=== PATIENT | female | born 1995 | race American Indian/Alaskan Native ===

== ENCOUNTER 2019-05-30 18:28 | Emergency (ER) | payer SELFPAY ==
[2019-05-30 18:35] VITALS: BP 125/90
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
[2019-05-30] MEDS ORDERED: TYLENOL PO ONE (18:36)
[2019-05-30] MEDS ORDERED: TYLENOL ONE (18:38)
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
[2019-05-30] MEDS ORDERED: IBUPROFEN PO ONE (20:30)
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
== END 2019-05-30 21:42 | disposition home or self-care (01) ==
LOC: ED 18:28
DX: S02.2XXA Fracture of nasal bones, initial encounter for closed fracture (principal); S00.83XA Contusion of other part of head, initial encounter; G44.319 Acute post-traumatic headache, not intractable; Z98.890 Other specified postprocedural states; Z79.899 Other long term (current) drug therapy; W22.01XA Walked into wall, initial encounter; Y93.89 Activity, other specified; Y92.89 Other specified places as the place of occurrence of the external cause; Y99.8 Other external cause status
CPT/HCPCS: 70450; 70486

== ENCOUNTER 2021-03-26 14:38 | Emergency (ER) | payer BC ==
[2021-03-26] MEDS ORDERED: IBUPROFEN 600 MG TAB PO ONE (16:29)
[2021-03-26] MEDS ORDERED: BUTALB/ACETAMINOPHEN/CAFFEINE TAB PO ONE (16:29)
--- NOTE | 2021-03-26 16:45 | Emergency Department Report ---
ED Headache HPI - General Chief Complaint: Headache Stated Complaint: MIGRAINS / ANXIETY Time Seen by Provider: 03/26/21 16:13 - History of Present Illness Initial Comments: Patient is a 25-year-old female presents emergency room with complaints of a frontal and bilateral temporal headache that began today while she was at work. she states that she had to leave work today secondary to the headache. She states that it increased her anxiety. She states that occasionally when the pain gets uncomfortable her vision gets blurry. She states that she has sensitivity to light and sounds. She denies any nausea, vomiting, numbness, weakness, speech disturbance, gait disturbance, fever, neck stiffness. She states typically ibuprofen works for her headaches. No past medical history. No allergies to medications. she states she has implanted control in the arm. Allergies/Adverse Reactions: Allergies No Known Allergies Allergy (Unverified 10/16/13 11:38) Home Medications: Ambulatory Orders Ciprofloxacin HCl [Cipro] 500 mg PO Q12H #14 tab 10/16/13 traMADoL [Ultram 50 MG tab] 50 mg PO Q6HR PRN #16 tablet 10/16/13 Erythromycin [Erythromycin Ophth Oint] 1 inch OS TID #1 tube 05/30/14 Acetaminophen/Codeine [Tylenol /Codeine # 3 tab] 1 tab PO Q6H PRN #12 tab 05/30/19 Amoxicillin/Potassium Clav [Augmentin 875-125 Tablet] 1 each PO Q12H #20 tablet 05/30/19 Ibuprofen [Motrin] 600 mg PO Q8H PRN #24 tablet 05/30/19 Ondansetron [Zofran Odt] 4 mg PO Q6HR PRN #12 tab.rapdis 05/30/19 Butalb/Acetaminophen/Caffeine [Fioricet 50-300-40 mg CAP] 1 cap PO Q8HR PRN #12 cap 03/26/21 Ibuprofen [Motrin 600 MG tab] 600 mg PO Q8H PRN #14 tablet 03/26/21 ED Review of Systems ROS: Stated complaint: MIGRAINS / ANXIETY Other details as noted in HPI Comment: All other systems reviewed and negative ED Past Medical Hx - Past Medical History Previous Medical History?: Yes Additional medical history: Anxiety - Surgical History Additional Surgical History: ovarin cyst lap 08-03 - Social History Smoking Status: Never Smoker - Medications Home Medications: Home Medications Medication Instructions Recorded Confirmed Last Taken Type Ciprofloxacin HCl [Cipro] 500 mg PO Q12H #14 tab 10/16/13 Unknown Rx traMADoL [Ultram 50 MG tab] 50 mg PO Q6HR PRN #16 tablet 10/16/13 Unknown Rx Erythromycin [Erythromycin Ophth 1 inch OS TID #1 tube 05/30/14 Unknown Rx Oint] Acetaminophen/Codeine [Tylenol 1 tab PO Q6H PRN #12 tab 05/30/19 Unknown Rx /Codeine # 3 tab] Amoxicillin/Potassium Clav 1 each PO Q12H #20 tablet 05/30/19 Unknown Rx [Augmentin 875-125 Tablet] Ibuprofen [Motrin] 600 mg PO Q8H PRN #24 tablet 05/30/19 Unknown Rx Ondansetron [Zofran Odt] 4 mg PO Q6HR PRN #12 tab.rapdis 05/30/19 Unknown Rx Butalb/Acetaminophen/Caffeine 1 cap PO Q8HR PRN #12 cap 03/26/21 Unknown Rx [Fioricet 50-300-40 mg CAP] Ibuprofen [Motrin 600 MG tab] 600 mg PO Q8H PRN #14 tablet 03/26/21 Unknown Rx ED Physical Exam - General Limitations: No Limitations General appearance: alert, in no apparent distress - Head Head exam: Present: atraumatic, normocephalic - Eye Eye exam: Present: normal appearance, PERRL, EOMI. Absent: conjunctival injection, periorbital swelling, periorbital tenderness Pupils: Present: normal accommodation - ENT ENT exam: Present: mucous membranes moist - Neck Neck exam: Present: normal inspection, full ROM. Absent: tenderness, meningismus - Respiratory Respiratory exam: Present: normal lung sounds bilaterally. Absent: respiratory distress, wheezes, rales, rhonchi, stridor, chest wall tenderness, accessory muscle use, decreased breath sounds, prolonged expiratory - Cardiovascular Cardiovascular Exam: Present: regular rate, normal rhythm, normal heart sounds. Absent: systolic murmur, diastolic murmur, rubs, gallop - Neurological Exam Neurological exam: Present: alert, oriented X3, CN II-XII intact, normal gait. Absent: motor sensory deficit - Psychiatric Psychiatric exam: Present: normal affect, normal mood - Skin Skin exam: Present: warm, dry, intact ED Course Vital Signs 03/26/21 03/26/21 03/26/21 14:55 16:38 16:39 Temperature 98.7 F Pulse Rate 76 Respiratory 20 16 16 Rate Blood Pressure 115/75 Blood Pressure [Right] O2 Sat by Pulse 100 Oximetry 03/26/21 17:31 Temperature Pulse Rate 81 Respiratory 19 Rate Blood Pressure Blood Pressure 124/75 [Right] O2 Sat by Pulse 99 Oximetry ED Medical Decision Making - Medical Decision Making Patient is a 25-year-old female presents emergency room with complaints of a frontal and bilateral temporal headache that began today while she was at work. she states that she had to leave work today secondary to the headache. She states that it increased her anxiety. She states that occasionally when the pain gets uncomfortable her vision gets blurry. She states that she has sensitivity to light and sounds. She denies any nausea, vomiting, numbness, weakness, speech disturbance, gait disturbance, fever, neck stiffness. She states typically ibuprofen works for her headaches. No past medical history. No allergies to medications. she states she has implanted control in the arm. Vitals are normal. No focal neuro deficits on exam, no meningeal signs, no signs of sinusitis. Patient given medications while in the emergency room with improvement of symptoms. Advised patient please take medication as prescribed. increase your fluid intake. follow up with a primary care doctor. return to the emergency room for any new or worsening symptoms. Critical care attestation.: If time is entered above; I have spent that time in minutes in the direct care of this critically ill patient, excluding procedure time. ED Disposition Clinical Impression: Headache Qualifiers: Headache type: unspecified Headache chronicity pattern: acute headache Intractability: not intractable Qualified Code(s): R51.9 - Headache, unspecified Disposition: DC-01 TO HOME OR SELFCARE Is pt being admited?: No Does the pt Need Aspirin: No Condition: Stable Instructions: Migraine Headache, [id number] Additional Instructions: please take medication as prescribed. increase your fluid intake. follow up with a primary care doctor. return to the emergency room for any new or worsening symptoms. Prescriptions: Butalb/Acetaminophen/Caffeine [Fioricet 50-300-40 mg CAP] 1 cap PO Q8HR PRN #12 cap PRN Reason: headache Ibuprofen [Motrin 600 MG tab] 600 mg PO Q8H PRN #14 tablet PRN Reason: headache Referrals: PAYAL SARABIA MD [Staff Physician] - 2-3 Days [facility] [Provider Group] - 2-3 Days Forms: Work/School Release Form(ED) Time of Disposition: 17:12 Print Language: RWANDAN
[2021-03-26 17:32] VITALS: BP 124/75
== END 2021-03-26 17:31 | disposition home or self-care (01) ==
LOC: ED 14:38
DX: R51.9 Headache, unspecified (principal); F41.9 Anxiety disorder, unspecified; Z79.899 Other long term (current) drug therapy; Z98.890 Other specified postprocedural states
CPT/HCPCS: 99282

== ENCOUNTER 2021-04-15 18:38 | Emergency (ER) | payer BC ==
[2021-04-15 19:29] VITALS: BP 127/82
[2021-04-15] MEDS ORDERED: HYDROcodone/ACETAMINOPHEN 5-325 MG TAB PO STA (20:11)
--- NOTE | 2021-04-15 20:24 | Emergency Department Report ---
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 States that the pain has intensified since the onset and swelling has worsened mildly but has been no improvement with the range of motion which concerned her and brought to visit emergency department this evening. She reports no previous injuries to that area reports no numbness, no tingling MD Complaint: leg injury -: Sudden Injury: Leg: Left, Ankle: Left Place: home Improves With: immobilization Worsens With: weight bearing, movement, palpation Associated Symptoms: snap/pop sensation, swelling - Related Data Previous Rx's Medication Instructions Recorded Last Taken Type Ciprofloxacin HCl [Cipro] 500 mg PO Q12H #14 tab 10/16/13 Unknown Rx traMADoL [Ultram 50 MG tab] 50 mg PO Q6HR PRN #16 tablet 10/16/13 Unknown Rx Erythromycin [Erythromycin Ophth 1 inch OS TID #1 tube 05/30/14 Unknown Rx Oint] Acetaminophen/Codeine [Tylenol 1 tab PO Q6H PRN #12 tab 05/30/19 Unknown Rx /Codeine # 3 tab] Amoxicillin/Potassium Clav 1 each PO Q12H #20 tablet 05/30/19 Unknown Rx [Augmentin 875-125 Tablet] Ibuprofen [Motrin] 600 mg PO Q8H PRN #24 tablet 05/30/19 Unknown Rx Ondansetron [Zofran Odt] 4 mg PO Q6HR PRN #12 tab.rapdis 05/30/19 Unknown Rx Butalb/Acetaminophen/Caffeine 1 cap PO Q8HR PRN #12 cap 03/26/21 Unknown Rx [Fioricet 50-300-40 mg CAP] Ibuprofen [Motrin 600 MG tab] 600 mg PO Q8H PRN #14 tablet 03/26/21 Unknown Rx Acetaminophen/Codeine [Tylenol #3] 1 tab PO Q6H PRN #15 tab 04/15/21 Unknown Rx Ketorolac [Toradol] 10 mg PO Q6H PRN #15 tablet 04/15/21 Unknown Rx Allergies Allergy/AdvReac Type Severity Reaction Status Date / Time No Known Allergies Allergy Unverified 10/16/13 11:38 ED Review of Systems ROS: Stated complaint: POSSIBLE PULLED MUSCLE IN RIGHT LEG Other details as noted in HPI Comment: All other systems reviewed and negative ED Past Medical Hx - Past Medical History Previous Medical History?: No Additional medical history: Anxiety - Surgical History Past Surgical History?: Yes Additional Surgical History: ovarin cyst lap 08-03 - Social History Smoking Status: Never Smoker - Medications Home Medications: Home Medications Medication Instructions Recorded Confirmed Last Taken Type Ciprofloxacin HCl [Cipro] 500 mg PO Q12H #14 tab 10/16/13 Unknown Rx traMADoL [Ultram 50 MG tab] 50 mg PO Q6HR PRN #16 tablet 10/16/13 Unknown Rx Erythromycin [Erythromycin Ophth 1 inch OS TID #1 tube 05/30/14 Unknown Rx Oint] Acetaminophen/Codeine [Tylenol 1 tab PO Q6H PRN #12 tab 05/30/19 Unknown Rx /Codeine # 3 tab] Amoxicillin/Potassium Clav 1 each PO Q12H #20 tablet 05/30/19 Unknown Rx [Augmentin 875-125 Tablet] Ibuprofen [Motrin] 600 mg PO Q8H PRN #24 tablet 05/30/19 Unknown Rx Ondansetron [Zofran Odt] 4 mg PO Q6HR PRN #12 tab.rapdis 05/30/19 Unknown Rx Butalb/Acetaminophen/Caffeine 1 cap PO Q8HR PRN #12 cap 03/26/21 Unknown Rx [Fioricet 50-300-40 mg CAP] Ibuprofen [Motrin 600 MG tab] 600 mg PO Q8H PRN #14 tablet 03/26/21 Unknown Rx Acetaminophen/Codeine [Tylenol #3] 1 tab PO Q6H PRN #15 tab 04/15/21 Unknown Rx Ketorolac [Toradol] 10 mg PO Q6H PRN #15 tablet 04/15/21 Unknown Rx ED Physical Exam - General Limitations: No Limitations General appearance: alert, in no apparent distress - Head Head exam: Present: atraumatic, normocephalic - Eye Eye exam: Present: normal appearance, PERRL, EOMI Pupils: Present: normal accommodation - ENT ENT exam: Present: normal exam, mucous membranes moist - Neck Neck exam: Present: normal inspection - Respiratory Respiratory exam: Present: normal lung sounds bilaterally. Absent: respiratory distress - Cardiovascular Cardiovascular Exam: Present: regular rate, normal rhythm. Absent: systolic murmur, diastolic murmur, rubs, gallop - GI/Abdominal GI/Abdominal exam: Present: soft, normal bowel sounds - Extremities Exam Extremities exam: Present: normal inspection, tenderness, normal capillary refill, joint swelling, calf tenderness - Expanded Lower Extremity Exam Left Lower Leg exam: Present: tenderness ('s test positive drawer test negative pain at the calf which appears to be more swollen and taut when compared to the right. Pulses are 2+ no ecchymosis is appreciated), swelling. Absent: laceration, ecchymosis, deformity, erythema, palpable cord, Jennifer's sign Neuro vascular tendon exam: Present: no vascular compromise. Absent: abnormal cap refill, sensory deficit, tendon deficit - Back Exam Back exam: Present: normal inspection - Neurological Exam Neurological exam: Present: alert, oriented X3 - Psychiatric Psychiatric exam: Present: normal affect, normal mood - Skin Skin exam: Present: warm, dry, intact, normal color. Absent: rash ED Course Vital Signs 04/15/21 19:28 Temperature 98 F Pulse Rate 82 Respiratory 16 Rate Blood Pressure 127/82 [Right] O2 Sat by Pulse 100 Oximetry - Orthopedic Splinting/Casting Injury #1 Side: left Lower Extremity Injury Location: lower leg, ankle Lower Extremity Immobilizer: posterior splint Other Orthopedic Equipment: crutches ED Lower Extremity MDM - Medical Decision Making 25-year-old [place] female status post jump of accident involving her left lower extremity with a positive 's test and examination does support some pathology involving her Achilles tendon however it is recommended she obtain an MRI for definitive severity of this injury. In the meantime we will place her in a immobilizing boot or splint if her boot is unavailable in conjunc tion with crutches analgesic medication control with strict follow-up precautions which she does express an understanding. Critical care attestation.: If time is entered above; I have spent that time in minutes in the direct care of this critically ill patient, excluding procedure time. ED Disposition Clinical Impression: Achilles tendon injury, Tightness of left gastrocnemius muscle Disposition: DC-01 TO HOME OR SELFCARE Is pt being admited?: No Does the pt Need Aspirin: No Condition: Stable Instructions: Achilles Tendon Tear, Myopathy Prescriptions: Ketorolac [Toradol] 10 mg PO Q6H PRN #15 tablet PRN Reason: Pain Acetaminophen/Codeine [Tylenol #3] 1 tab PO Q6H PRN #15 tab PRN Reason: Pain Referrals: [facility] [Provider Group] - 2-3 Days (Please call for your appointment to obtain further evaluation including most likely an MRI)
[2021-04-15] MEDS ORDERED: ONDANSETRON 4 MG ODT TAB PO ONE (20:26)
== END 2021-04-15 21:09 | disposition home or self-care (01) ==
LOC: ED 18:38
DX: S86.002A Unspecified injury of left Achilles tendon, initial encounter (principal); X58.XXXA Exposure to other specified factors, initial encounter; Y93.56 Activity, jumping rope; Y92.89 Other specified places as the place of occurrence of the external cause; Y99.8 Other external cause status; Z79.899 Other long term (current) drug therapy; Z79.1 Long term (current) use of non-steroidal anti-inflammatories (NSAID)
CPT/HCPCS: 99283; Q0162